=== PATIENT | female | born 1975 | race Caucasian/White ===

== ENCOUNTER 2018-11-03 22:14 | Emergency (ER) | payer OTHER ==
[~2018-11-03] VITALS: Ht 167.6 cm; Wt 64.4 kg
[2018-11-03] MEDS ORDERED: ACETAMINOPHEN ES 500 MG TABLET ONE (22:58)
[2018-11-03] MEDS ORDERED: ACETAMINOPHEN 325 MG TABLET PO ONE (23:00)
--- NOTE | 2018-11-03 23:01 | NUR ---
BIBF. C/O "FELL OFF A SCOOTER, -LOC" AOX4. AMBULATORY. VSS -KO -DIZZY
[2018-11-04 01:10] VITALS: BP 112/72
== END 2018-11-04 01:15 | disposition home or self-care (01) ==
LOC: ER 22:20
DX: S50.02XA Contusion of left elbow, initial encounter (principal); S60.221A Contusion of right hand, initial encounter; R68.84 Jaw pain; G47.30 Sleep apnea, unspecified; J45.909 Unspecified asthma, uncomplicated; V00.831A Fall from motorized mobility scooter, initial encounter; Y93.I9 Activity, other involving external motion; Y92.89 Other specified places as the place of occurrence of the external cause; Y99.8 Other external cause status
CPT/HCPCS: 70450; 70486; 73080; 73090; 73130; 99284; A6403